=== PATIENT | male | born 1990 | race Caucasian/White ===

== ENCOUNTER 2023-03-01 04:26 | Emergency (ER) | payer BC, SELFPAY ==
[2023-03-01 04:31] VITALS: BP 127/87; PULSE 67; RESP 16; TEMP 37.1; O2SAT 99; BMI 26.6
--- NOTE | 2023-03-01 04:38 | PC.NURSE ---
Pt presents to ER for left ear infection Pt states It is not really that painful, but I know I have an ear infection Pt states he has a history of ear infections and just knows thats what it is Pt has a cotton ball in the ear at this time No fevers
--- NOTE | 2023-03-01 04:42 | ED.EAR1 ---
HPI - Ear Problem General Chief complaint: Ear Stated complaint: LEFT EAR PAIN Time Seen by Provider: 03/01/23 04:39 Source: patient Mode of arrival: walk-in Limitations: no limitations History of Present Illness HPI Narrative: patient states he has a hole left ear drum. States left ear has been draining and plugged. No dizziness or headache. no fever MD Complaint: Reports ear pain Location: left ear Related Data Home Medications Medication Instructions Recorded Confirmed No Known Home Medications 03/01/23 03/01/23 Allergies Allergy/AdvReac Type Severity Reaction Status Date / Time No Known Drug Allergies Allergy Verified 03/01/23 04:35 Review of Systems ROS Status of ROS 10 or more systems reviewed and unremarkable except as noted in history and below Exam Constitutional Vital Signs - 24 hr 03/01/23 04:31 Temperature 98.7 F Pulse Rate [Monitor] 67 Respiratory Rate 16 Blood Pressure [Right Arm] 127/87 H Pulse Oximetry 99 Oxygen Delivery Method Room Air Common normals: no apparent distress, average body habitus and oriented x3 HENMT Common normals: normocephalic and head/scalp atraumatic Other: left ear canal impacted with wax. no obvious drainage and ear canal is not narrowed Eye Common normals: PERRL, EOMs intact bilaterally and conjunctivae normal Respiratory Common normals: normal respiratory effort Cardio Common normals: regular rhythm, S1 normal heart sound and S2 normal heart sound Extremity Common normals: normal to inspection and full ROM Neuro Common normals: oriented x3, CN's II-XII intact bilaterally, moves all extremities and no focal motor deficits Course Vital Signs Vital signs: Vital Signs Temperature 98.7 F 03/01/23 04:31 Pulse Rate 67 03/01/23 04:31 Respiratory Rate 16 03/01/23 04:31 Blood Pressure 127/87 H 03/01/23 04:31 Pulse Oximetry 99 03/01/23 04:31 Oxygen Delivery Method Room Air 03/01/23 04:31 Temperature 98.7 F 03/01/23 04:31 Pulse Rate 67 03/01/23 04:31 Respiratory Rate 16 03/01/23 04:31 Blood Pressure 127/87 H 03/01/23 04:31 Pulse Oximetry 99 03/01/23 04:31 Oxygen Delivery Method Room Air 03/01/23 04:31 Medical Decision Making [facility] Narrative Medical decision making narrative: patient presents with left ear pain. 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 does have impacted wax which severely limits inspection of the ear. Refrained from having nursing irrigate his ear given his history of ear perforation. Will treat with course of antibiotics and have him follow up with his family doctor for recheck Discharge Plan Discharge Chief Complaint: Ear Clinical Impression: Pain in left ear Patient Disposition: Home, Self-Care Prescriptions / Home Meds: No Action No Known Home Medications Instructions: Earache (ED) Additional Instructions: follow up with your doctor early next week for recheck of your ear Stand Alone Forms: Portal Instructions Discharge Date/Time: 03/01/23 05:39
== END 2023-03-01 05:39 | disposition home or self-care (01) ==
PROVIDERS: Emergency Provider Internal Medicine; Family Provider Family Medicine
DX: H92.02 Otalgia, left ear (principal)
CPT/HCPCS: 99283

== ENCOUNTER 2024-01-22 10:48 | Emergency (ER) | payer BC, SELFPAY ==
[2024-01-22] VITALS (20 sets, daily range): BP systolic 113–133; BP diastolic 64–81; PULSE 86–97; TEMP 36.9–37.6; O2SAT 96–99; BMI 28.2
--- NOTE | 2024-01-22 10:59 | XR_ITS ---
The [address] [address] Patient Name: ATUL RUST MRN: [id number] date: 1990 Sex: M Assigned Patient Location: ER Current Patient Location: ER Accession/Order Number: [id number] Exam Date: 01/22/2024 11:34 Report Date: 01/22/2024 11:56 At the request of: EVI VÁZQUEZ Procedure: XR chest 1V EXAM: Chest x-ray HISTORY: . cough . COMPARISON: None. TECHNIQUE: Single view of the chest FINDINGS: Heart and vascularity are unremarkable. Lungs are free of focal infiltrates. Grossly no acute bony abnormality is appreciated. EKG leads overlie the chest. XR/XR chest 1V IMPRESSION: No acute heart or lung disease identified. Electronically authenticated by: NORMA LIVINGSTON Date: 01/22/2024 11:56
--- NOTE | 2024-01-22 10:59 | ECG_ITS ---
The [facility] Test Date: 2024-01-22 Pat Name: ATUL RUST Department: Room: - Gender: Male Scheduler Maintenance: : 1990 Requested By: Order Number: [id number] Reading MD: MICHAEL BURRIS Measurements Intervals [place] Rate: 96 P: 53 MO: 136 QRS: 73 QRSD: 100 T: 46 QT: 334 QTc: 388 Interpretive Statements 1100 Sinus rhythm 2420 RSR (QR) in lead V1/V2, consistent with right ventricular conduction delay 9130 borderline ECG No previous ECG available for comparison Electronically Signed On 01-22-2024 23:06:02 EDT by MICHAEL BURRIS
--- NOTE | 2024-01-22 11:01 | ED_ITS ---
HPI HPI - General Adult General Chief complaint: Shortness of Breath/Dyspnea Stated complaint: CHEST PAIN, SOB, NAUSEA Time Seen by Provider: 01/22/24 10:49 Source: patient Mode of arrival: walk-in Limitations: no limitations History of Present Illness HPI narrative: Patient presents ED complaining of shortness of breath and not feeling well. He said he started feeling short of breath last night around 8 PM at work. 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 He just felt winded and like he could not catch his breath or like he could not get a deep breath. He has no history of lung problems no asthma no COPD. He does not smoke. He did recently travel to [place] and just got back 2 days ago. They did fly on an airplane. He said his ear was bothering him after the airplane but he thought it was just due to pressure and it has now normalized. He does have some tachycardia here and low-grade fever. He is upset and anxious here in ED and says he is never felt this sick before. He does question if this could be food poisoning because he did not wash his hands after handling meat Recently. He did have a little bit of vomiting once but otherwise no other vomiting or diarrhea.He reports that it feels hard to get a deep breath and when he breathes deeply he seems to have centrally located chest pain. No back pain no abdominal pain. Related Data Home Medications ?Medication ?Instructions ?Recorded ?Confirmed No Known Home Medications 03/01/23 03/01/23 Allergies Allergy/AdvReac Type Severity Reaction Status Date / Time No Known Drug Allergies Allergy Verified 03/01/23 04:35 Opioid HPI Opioid Management Most Recent Opioid Data: Last ED Pain Assessment 01/22/24 12:12 Review of Systems ROS Status of ROS 10 or more systems reviewed and unremark able except as noted in history and below Exam Narrative Exam Narrative: Time Seen: [] Vital Signs: [Per nurse's notes.] General: [Alert]Anxious, tearful Skin: [Warm, dry, no rash.] Head: [Normocephalic, atraumatic.] Neck: [Supple, trachea midline.] Eye: [Pupils are equal, round and reactive to light, extraocular movements are intact, normal conjunctiva.] Ears, nose, mouth and throat: oral mucosa moist. Cardiovascular: [Tachycardia, no murmur.] Respiratory: [Lungs are clear to auscultation, respirations are non-labored, breath sounds are equal.Patient is taking shallow breaths Chest wall: [No tenderness, no deformity.] Gastrointestinal: [Soft, nontender, non distended, normal bowel sounds.] MSK: 5 out of 5 muscle strength x 4 extremities no calf pain or edema Lymphatics: [No lymphadenopathy.] Psychiatric: [Cooperative, appropriate mood & affect.] Neurological: [Alert and oriented to person, place, time, and situation, no focal neurological deficit observed.] Constitutional Vital Signs, click to edit/add: Last Vital Signs Temp 99.6 F 01/22/24 10:53 Pulse 86 01/22/24 12:10 Resp 18 01/22/24 12:10 BP 113/71 01/22/24 12:01 Pulse Ox 98 01/22/24 12:12 O2 Del Method Room Air 01/22/24 12:12 Course Vital Signs Vital signs: Vital Signs Temperature 99.6 F 01/22/24 10:53 Pulse Rate 96 H 01/22/24 10:53 Respiratory Rate 18 01/22/24 10:53 Blood Pressure 133/80 01/22/24 10:53 Pulse Oximetry 97 01/22/24 10:53 Oxygen Delivery Method Room Air 01/22/24 10:53 Temperature 99.6 F 01/22/24 10:53 Pulse Rate 86 01/22/24 12:10 Respiratory Rate 18 01/22/24 12:10 Blood Pressure 113/71 01/22/24 12:01 Pulse Oximetry 98 01/22/24 12:12 Oxygen Delivery Method Room Air 01/22/24 12:12 Medical Decision Making [facility] Narrative Medical decision making narrative: Patient's chest x-ray is clear. His liver function tests are mildly elevated therefore I added on a monotest. Monotest is negative. The rest of his labs are nonacute. Patient and family were concerned because he did just spend time in [place] they wanted him ruled out for valley fever. I sent lab's for Coccidiomycosis Which will not be back for a few days. Patient is to return to the ER if worsening cough shortness of breath fevers abdominal pain or any other concerning symptoms. D-dimer was negative, PE ruled out. Please follow-up with family doctor to have the liver function rechecked. Take Tylenol and Motrin for pain or fever and stay well-hydrated with fluids. Patient's vitals are stable he and family are comfortable care plan for home Differential Diagnosis Differential Diagnosis: Viral syndrome, valley fever, pneumonia, pulmonary embolus Lab Data Labs: Lab Results 01/22/24 01/22/24 Range/Units 10:54 11:05 WBC 9.0 (4.0-11.0) 10^3/uL RBC 4.86 (4.70-6.10) 10^6/uL Hgb 14.4 (14.0-18.0) g/dL Hct 44.2 (42.0-54.0) % MCV 90.9 (80.0-94.0) fL MCH 29.6 (25.9-34.0) pg MCHC 32.6 (29.9-35.2) g/dL RDW 12.8 (11.0-15.0) % Plt Count 200 (150-450) 10^3/uL MPV 8.7 L (9.5-13.5) fL Neut % (Auto) 81.4 H (43.0-75.0) % Lymph % (Auto) 10.7 L (20.5-60.0) % [place] % (Auto) 6.8 (1.7-12.0) % Eos % (Auto) 0.6 L (0.9-7.0) % Baso % (Auto) 0.3 (0.2-2.0) % Neut # (Auto) 7.4 H (1.4-6.5) 10^3/uL Lymph # (Auto) 1.0 L (1.2-3.8) 10^3/uL [place] # (Auto) 0.6 (0.3-0.8) 10^3/uL Eos # (Auto) 0.1 (0.0-0.7) 10^3/uL Baso # (Auto) 0.0 (0.0-0.1) 10^3/uL Abs Immat Gran (auto) 0.02 (0.00-0.03) 10^3/uL Imm/Tot Granulo (auto) 0.2 (0.0-0.5) % D-Dimer 0.20 (<=0.59) mg/L FEU Sodium 138 (136-145) mmol/L Potassium 4.2 (3.5-5.1) mmol/L Chloride 103 (98-107) mmol/L Carbon Dioxide 26.8 (21.0-32.0) mmol/L Anion Gap 12.4 BUN 14.0 (7.0-18.0) mg/dL Creatinine 0.95 (0.70-1.30) mg/dL Est GFR ( Amer) >60 (>=60) Est GFR (Non-Af Amer) >60 (>=60) BUN/Creatinine Ratio 14.7 Glucose 107 H (74-106) mg/dL Calcium 8.8 (8.5-10.1) mg/dL Total Bilirubin 1.1 H (0.2-1.0) mg/dL AST 31 (15-37) U/L ALT 79 H (16-63) U/L Alkaline Phosphatase 124 H (46-116) U/L Troponin I High Sens <4.0 L (4.0-76.1) pg/mL Total Protein 7.5 (6.4-8.2) g/dL Albumin 4.1 (3.4-5.0) g/dL Globulin 3.4 g/dL Albumin/Globulin Ratio 1.2 Monoscreen Negative (NEGATIVE) Influenza Type A Ag Negative Influenza Type B Ag Negative SARS-CoV-2 Ag (CV2AG) Negative (NEGATIVE) Imaging Data Chest x-ray: Radiologist's impression: ITS Impressions Chest X-Ray 01/22/24 10:59 IMPRESSION: No acute heart or lung disease identified. Electronically authenticated by: NORMA LIVINGSTON Date: 01/22/2024 11:56 ECG Data Attestation: I personally reviewed and interpreted this ECG as follows: Interpretation: EKG INTERPRETATION Time: []1059 Rate: []96 Rhythm: _ []Normal sinus rhythm ST segments: _ [] T waves: _ [] Ectopy: _ [] P wave/CO interval: _ [] QRS interval: _ [] QT interval: _ [] Comparison: _ [] Comparison EKG date: [] Performed by: [self]No acute ST elevation or depression Discharge Plan Discharge Stand Alone Forms: Portal Instructions Chief Complaint: Shortness of Breath/Dyspnea Clinical Impression: Acute viral syndrome Patient Disposition: Home, Self-Care Time of Disposition Decision: 12:24 Mode of Transportation: Private Vehicle Prescriptions / Home Meds: No Action No Known Home Medications Print Language: Italian Instructions: Viral Syndrome (ED) Referrals: Physician,Non-Staff, MD [Primary Care Provider] - 1 week
[2024-01-22 11:13] LABS: Basophils Percent Auto 0.3 % (0.2-2.0); Eosinophils Absolute Auto 0.1 10^3/uL (0.0-0.7); Eosinophils Percent Auto 0.6 % (0.9-7.0); Hematocrit 44.2 % (42.0-54.0); Hemoglobin 14.4 g/dL (14.0-18.0); Immature Granulocytes Abs Auto 0.02 10^3/uL (0.00-0.03); Immature Granulocytes Pct Auto 0.2 % (0.0-0.5); Lymphocytes Percent Auto 10.7 % (20.5-60.0); Mean Corpuscular HGB Conc 32.6 g/dL (29.9-35.2); Mean Corpuscular Hemoglobin 29.6 pg (25.9-34.0); Mean Corpuscular Volume 90.9 fL (80.0-94.0); Mean Platelet Volume 8.7 fL (9.5-13.5); Monocytes Absolute Auto 0.6 10^3/uL (0.3-0.8); Monocytes Percent Auto 6.8 % (1.7-12.0); Neutrophils Absolute Auto 7.4 10^3/uL (1.4-6.5); Neutrophils Percent Auto 81.4 % (43.0-75.0); Platelet Count 200 10^3/uL (150-450); Red Blood Count 4.86 10^6/uL (4.70-6.10); Red Cell Distribution Width 12.8 % (11.0-15.0)
[2024-01-22] MEDS: 0.9 % SODIUM CHLORIDE 1,000 ML 1000 ML IV (11:15)
[2024-01-22] MEDS: KETOROLAC TROMETHAMINE 30 MG/ML VIAL 15 MG IVP (11:15)
[2024-01-22 11:38] LABS: Influenza Virus A Antigen Negative; Influenza Virus B Antigen Negative; Internal Control Within Normal Limits; SARS-CoV-2 Ag NEGATIVE (NEGATIVE)
[2024-01-22 11:41] LABS: Alanine Aminotransferase 79 U/L (16-63); Albumin Globulin Ratio 1.2; Albumin Level 4.1 g/dL (3.4-5.0); Alkaline Phosphatase 124 U/L (46-116); Anion Gap 12.4; Aspartate Amino Transferase 31 U/L (15-37); BUN Creatinine Ratio 14.7; Bilirubin Total 1.1 mg/dL (0.2-1.0); Calcium 8.8 mg/dL (8.5-10.1); Carbon Dioxide 26.8 mmol/L (21.0-32.0); Chloride 103 mmol/L (98-107); Estimated GFR (African America >60 (>=60); Estimated GFR (Non-African Ame >60 (>=60); Globulin 3.4 g/dL; Glucose 107 mg/dL (74-106); Potassium 4.2 mmol/L (3.5-5.1); Sodium 138 mmol/L (136-145); Total Protein 7.5 g/dL (6.4-8.2); Troponin I High Sensitivity <4.0 pg/mL (4.0-76.1)
[2024-01-22 12:09] LABS: Internal Control Within Normal Limits; Mono Screen NEGATIVE (NEGATIVE)
== END 2024-01-22 12:40 | disposition home or self-care (01) ==
PROVIDERS: Emergency Provider Emergency Medicine; Family Provider Family Medicine
DX: B34.9 Viral infection, unspecified (principal); Z20.822 Contact with and (suspected) exposure to COVID-19
CPT/HCPCS: 36415; 71045; 80053; 84484; 85025; 85378; 86308; 86635; 87804; 87811; 93005; 99285

== ENCOUNTER 2024-04-04 05:27 | Emergency (ER) | payer BC, SELFPAY ==
--- OUTSIDE RECORDS SUMMARY | 2024-04-04 05:35 | XMS_ITS | CCD ---
Author Organization [facility] Care Team Providers Care Agricultural Extension Educator Name Role Phone Bailey LIU Primary Care Physician MATEO ELAINE Attending Unavailable MATEO ELAINE Consulting Unavailable MATEO ELAINE Admitting Unavailable DR BAILEY LIU Consulting Unavailable Bailey LIU Attending Unavailable Bailey LIU Attending Unavailable Bailey LIU Admitting Unavailable Chet Corrales Attending Unavailable Bailey LIU Attending Unavailable Rikki Mccormick Attending Unavailable Bailey LIU Referring Unavailable Bailey LIU Attending Unavailable Bailey LIU Admitting Unavailable Allergies Allergy Classification Reported Allergen(s) Allergy Type Date of Onset Reaction(s) Facility (2 sources) No Known Medication Allergies; Translations: [No Known Medication Allergies] Propensity to adverse reactions (disorder) [facility] Repository Medications Current Medications Medication Drug Class(es) Dates Sig (Normalized) Sig (Original) famotidine 40 mg oral tablet (3 sources) Histamine-2 Receptor Antagonist Start: 01-28-2024 take 1 tablet by mouth once daily at bedtime Pepcid 40 mg Tab 40 mg = 1 tab(s), Oral, Once a day (at bedtime), # 90 tab(s), Refills(s) 3, Pharmacy: [facility]/pharmacy #[id number], 170.2, cm, 01/28/24 10:27:00 EDT, Height/Length Dosing, 85.7, kg, 01/28/24 10:27:00 EDT, Weight Dosing Start Date: 01/28/24 Status: Ordered Garamycin 0.3% Soln-Opth (1 source) Start: 10-30-2023 End: 11-06-2023 Garamycin 0.3% Soln-Opth 2 drop(s), OPTH, QID for 7 day(s), 5 mL, Refill(s) 0, [facility], 170.2, cm, 10/30/23 9:25:00 EST, Height/Length Dosing, 87, kg, 10/30/23 9:25:00 EST, Weight Dosing Start Date: 10/30/23 Stop Date: 11/06/23 Status: Ordered 12 hr loratadine 5 mg / pseudoephedrine sulfate 120 mg extended release oral tablet (1 source) alpha-Adrenergic Agonist Start: 11-14-2021 End: 11-21-2021 take 1 tablet by mouth every twelve hours loratadine-pseud oephedrine 5 mg-120 mg ER Tab 1 tab(s), Oral, q12hr for 7 day(s), 14 tab(s), [facility](s) [facility], [facility], cm, 08/25/20 9:15:00 EST, Height/Length Dosing, 68.5, kg, 08/25/20 9:15:00 EST, Weight Dosing Start Date: 11/14/21 Stop Date: 11/21/21 Status: Ordered Problems Problem Classification Problem Date Documented Da te Episodic/Chronic Abdominal pain (2 sources) Generalized abdominal pain 08-25-2020 Episodic Esophageal disorders (4 sources) Gastro-esophageal reflux disease with esophagitis; Translations: [Gastro-esophageal reflux disease with esophagitis, without bleeding] Onset: 01-28-2024 Chronic Nonspecific chest pain (5 sources) Chest pain; Translations: [Other chest pain] Onset: 01-28-2024 Episodic Other ear and sense organ disorders (1 source) Otalgia; Translations: [Otalgia, unspecified ear] Onset: 11-14-2021 Episodic Other ear and sense organ disorders (4 sources) Otalgia, left ear; Translations: [Otalgia of left ear] Onset: 06-26-2022 Episodic Other eye disorders (1 source) Disorder of eye region; Translations: [Other specified disorders of eye and adnexa] Onset: 10-30-2023 Episodic Other injuries and conditions due to external causes (5 sources) Injury of groin 08-25-2020 Episodic Other injuries and conditions due to external causes (2 sources) Strain of muscle of trunk 08-25-2020 Episodic Other liver diseases (1 source) Increased aspartate transaminase level; Translations: [Elevation of levels of liver transaminase levels] Onset: 01-28-2024 Episodic Other liver diseases (1 source) Jaundice; Translations: [Unspecified jaundice] Onset: 01-28-2024 Episodic Other liver diseases (3 sources) ALT (SGPT) level raised 01-28-2024 Episodic Other nutritional; endocrine; and metabolic disorders (4 sources) Overweight in adulthood with body mass index of 25 or more but less than 30; Translations: [Body mass index (BMI) 29.0-29.9, adult] Onset: 01-28-2024 Episodic Other nutritional; endocrine; and metabolic disorders (4 sources) Overweight; Translations: [Overweight] Onset: 01-28-2024 Episodic Other screening for suspected conditions (not mental disorders or infectious disease) (3 sources) Increased bilirubin level 01-28-2024 Episodic Other upper respiratory disease (2 sources) Nasal congestion; Translations: [Nasal congestion] Onset: 11-14-2021 Episodic Otitis media and related conditions (1 source) Otitis media, unspecified, left ear; Translations: [OTITIS MEDIA UNSPECIFIED LEFT EAR] Onset: 06-27-2022 Episodic Unclassified (5 sources) Patient encounter status 08-25-2020 Results Test Name Value Interpretation Reference Range Facility Heart and Vascular Office/Cl inic Noteon 02-20-2024 Heart and Vascular Office/Clinic Note Heart and Vascular Office/Clinic Note Chief Complaint New patient- Chest Pain History of Present Illness The patient is a 33-year-old male with past medical history of GERD, who was referred due to chest discomfort. In the end of December, he presented to [facility] ER with complaints of chest pain. It was associated with nausea. He describes the pain as feelings of needle poking sensations in his right abdominal area, lasting for hours, exacerbating by taking a deep breath. His cardiac workup was quite unremarkable. He states that they came from vacation from [place], and his relatives had similar symptoms. He reports no exertional chest pain or tightness, dizziness or lightheadedness, palpitations, syncope or presyncope. The patient is a lifetime non-smoker. He admits to significant precocious history of CAD in his family, with his mother having a myocardial infarction in her 40s. Review of Systems PHQ Score Initial Depression Screen Score: 0 SCORE ROS - Provider Constitutional: no fever, no chills, no fatigue Skin:no rash, no lesions ENMT: no ear pain, no sore throat, no congestion. Respiratory: no shortness of breath, no cough, no wheezing. Cardiovascular: no chest pain, no palpitations, no edema. Gastrointestinal: no nausea, no vomiting, no diarrhea, no GI bleeding. Genitourinary: no dysuria, no frequencyno hematuria Musculoskeletal: no back pain, no trauma. Neurologic: no headache, no dizziness, no numbness, no weakness. Psychiatric: no sleeping problems, no irritability, no mood swings/depression. Heme/Lymph: no bleeding tendency, no bruising tendency, no petechiae, Allergy/Immuno logic: no seasonal allergies, no food allergies, no recurrent infections Physical Exam Vitals & Measurements HR: 64(Peripheral) RR: 16 BP: 122/72 SpO2: 98% HT: 67 in HT: 170.2 cm WT: 86.2 kg WT: 189.64 lb BMI: 29.76 General: alert, no acute distress Neck: Supple, noJVD nocarotid bruit Cardiovascular: regular rate and rhythm, no murmur normal peripheral perfusion Respiratory: Lungs CTAB, respirations non labored Extremities: no edema left lower extremity. no edema right lower extremity Neurological: oriented x 4, LOC appropriate for age, speech normal Skin: Warm, dry, intact- no rash or concerning lesions Procedure ECG today demonstrates sinus rhythm at 63 bpm, no ST or T wave deviations, consistent with ischemia. Assessment/Plan 1. Precordial pain (R07.2: Precordial pain) Clearly noncardiac. I do not think any additional cardiac workup is necessary, at least at this point in time. Aggressive risk factor modification is recommended, given presence of precocious CAD in the family. Orders: ECG 12 Lead Adult Follow-up No qualifying data available As needed Problem List/Past Medical History Ongoing Atypical chest pain BMI 29.0-29.9,adult Elevated ALT measurement Elevated bilirubin GERD with esophagitis Over weight Well adult exam Historical Groin strain Medications Pepcid 40 mg Tab, 40 mg= 1 tab(s), Oral, Once a day (at bedtime), 3 refills Allergies No Known Medication Allergies Social History Alcohol - Denies Alcohol Use, 11/14/2021 Substance Abuse - Denies Substance Abuse, 11/14/2021 Tobacco - Denies Tobacco Use, 11/14/2021 Never (less than 100 in lifetime) Tobacco Use:. Never Smokeless Tobacco Use:., 02/20/2024 Family History Family history is negative Immunizations Vaccine Date Status Comments SARS-CoV-2 (COVID-19) Ad26 vaccine - Not Given Postpone due to refusal influenza virus vaccine, inactivated - Not Given Patient Refuses Normal [facility] Comment on above: Result Comment: Elec tronically Signed By: Jace BURRIS, Rikki Lomeli\.br\Date and Time Signed: 02/20/24 09:16 EDT Insurance Correspondenceon 0 02-03-2024 Insurance Correspondence [id number] Normal [facility] CHEMISTRYOrdered By: SYSTEM SYSTEM on 01-29-2024 Albumin [Mass/Vol] 4.6 g/dL Normal 3.3 - 5.0 gm/dL Remisol Chem Albumin/Globulin [Mass ratio] 1.7 {ratio} Normal 1.1 - 2.2 Remisol Chem ALP [Catalytic activity/Vol] 80 [iU]/d Normal 21 - 98 Int._Unit/L Remisol Chem ALT No additional P-5'-P [Catalytic activity/Vol] 26 [iU]/d Normal 6 - 46 Int._Unit/L Remisol Chem AST [Catalytic activity/Vol] 18 [iU]/d Normal 5 - 43 Int._Unit/L Remisol Chem Bilirubin [Mass/Vol] 0.7 mg/dL Normal 0.0 - 1.1 mg/dL Remisol Chem Bilirubin.direct [Mass/Vol] 0.1 mg/dL Normal 0.0 - 0.4 mg/dL Remisol Chem Bilirubin.indirect [Mass or moles/Vol] 0.6 mg/dL Normal 0.1 - 0.9 mg/dL Remisol Chem Cholesterol [Mass/Vol] 200 mg/dL Normal 120 - 200 mg/dL Remisol Chem Cholesterol in HDL [Mass/Vol] 36 mg/dL Invalid Interpretation Code Remisol Chem Comment on above: Result Comment: '>= 60 LOW RISK' '<= 40 HIGH RISK' Cholesterol in LDL [Mass/Vol] 148 mg/dL High <=129mg/dL Remisol Chem Cholesterol in VLDL [Mass/Vol] 25 mg/dL Normal 7 - 40 mg/dL Remisol Chem Ferritin [Mass/Vol] 119 ng/mL Normal 24 - 336 ng/mL Remisol Chem Globulin (S) [Mass/Vol] 2.7 g/dL Normal 1.4 - 4.0 gm/dL Remisol Chem Protein [Mass/Vol] 7.3 g/dL Normal 6.0 - 7.8 gm/dL Remisol Chem Triglyceride [Mass/Vol] 127 mg/dL Normal <=149mg/dL Remisol Chem Consent for Treatmenton Consent for Treatment [id number] Normal [facility] Ferritinon 01-29-2024 Ferritin [Mass/Vol] 119 ng/mL Normal 24-336 [facility] Comment on above: Performed By: #### 2 [id number] #### [facility] [address] [place] [address] Hep Func Panelon 01-29-2024 Albumin [Mass/Vol] 4.6 g/dL Normal 3.3-5.0 [facility] Comment on above: Performed By: #### 2 [id number] #### [facility] [address] [place] [address] Albumin/Globulin (S) [Mass conc ratio] 1.7 Normal 1.1-2.2 [facility] Comment on above: Performed By: #### 2 [id number] #### [facility] [address] [place] [address] ALP [Catalytic activity/Vol] 80 Int._Unit/L Normal 21-98 [facility] Comment on above: Performed By: #### 2 [id number] #### [facility] [address] [place] [address] ALT No additional P-5'-P [Catalytic activity/Vol] 26 Int._Unit/L Normal 6-46 [facility] Comment on above: Performed By: #### 2 [id number] #### [facility] [address] [place] [address] AST [Catalytic activity/Vol] 18 Int._Unit/L Normal 5-43 [facility] Comment on above: Performed By: #### 2 [id number] #### [facility] [address] [place] [address] Bilirubin [Mass/Vol] 0.7 mg/dL Normal 0.0-1.1 [facility] Comment on above: Performed By: #### 2 [id number] #### [facility] [address] [place] [address] Bilirubin.direct [Mass/Vol] 0.1 mg/dL Normal 0.0-0.4 [facility] Comment on above: Performed By: #### 2 [id number] #### [facility] [address] [place] [address] Bilirubin.indirect [Mass or moles/Vol] 0.6 mg/dL Normal 0.1-0.9 [facility] Comment on above: Performed By: #### 2 [id number] #### [facility] [address] [place] [address] Globulin (S) [Mass/Vol] 2.7 g/dL Normal 1.4-4.0 [facility] Comment on above: Performed By: #### 2 [id number] #### [facility] [address] [place] [address] Protein [Mass/Vol] 7.3 g/dL Normal 6.0-7.8 [facility] Comment on above: Performed By: #### 2 [id number] #### [facility] [address] [place] [address] Lipid Panelon 01-29-2024 Cholesterol [Mass/Vol] 200 mg/dL Normal 120-200 [facility] Comment on above: Performed By: #### 2 [id number] #### [facility] [address] [place] [address] Cholesterol in HDL [Mass/Vol] 36 mg/dL Invalid Interpretation Code [facility] Comment on above: Result Comment: '>= 60 LOW RISK' '<= 40 HIGH RISK' Performed By: #### 2 [id number] #### [facility] [address] [place] [address] Cholesterol in LDL [Mass/Vol] 148 mg/dL High <=129 [facility] Comment on above: Performed By: #### 2 [id number] #### [facility] [address] [place] [address] Cholesterol in VLDL [Mass/Vol] 25 mg/dL Normal 7-40 [facility] Comment on above: Performed By: #### 2 [id number] #### [facility] [address] [place] [address] Triglyceride [Mass/Vol] 127 mg/dL Normal <=149 [facility] Comment on above: Performed By: #### 2 [id number] #### [facility] [address] [place] [address] Physician Referralon 024 Physician Referral [id number] Normal [facility] Ambulatory Visit Summaryon 0 01-28-2024 Ambulatory Visit Summary ATUL RUST :1990 Visit Date:01/28/2024 Ambulatory Visit Instructions Your Diagnosis Atypical chest pain Well adult exam Elevated ALT measurement Elevated bilirubin GERD with esophagitis BMI 29.0-29.9,adult Over weight Your Care Team Attending Physician - Bailey LIU DO, FAAFP Primary Care Physician - Bailey LIU DO, FAAFP This Is Your Medications List famotidine (Pepcid 40 mg Tab) Discharge Vitals Temperature (Oral) 36.4 ?C Heart Rate (Peripheral) 77 Blood Pressure 138/72 Height 170.2 cm Height 67 in Weight 85.7 kg Weight 188.54 lb BMI 29.58 What to do next You Need to Schedule the Following Appointments Follow Up with Bailey LIU DO, FAAFP, JOANA, PED When: In 3 months Where: [address], [facility] [place] [address]- You Need to Complete the Following Echo Transthoracic Complete, 01/28/24, Routine, Order for future visit, Transport Mode: Ambulatory, Reason: Chest pain, Atypical chest pain, pp_set_radiology_subspecia lty, [facility] Medications What How Much When Why Instructions New famotidine (Pepcid 40 mg Tab) 1 Tablets By Mouth Once a day (at bedtime) GERD with esophagitis Refills: 3 Pickup at [facility]/pharmacy #[id number] Pharmacy Information [facility]/pharmacy #[id number]: [address] [place], [place] [id number] [phone] Allergies No Known Medication Allergies Problems Ongoing - Any problem that you are currently receiving treatment for. Atypical chest pain BMI 29.0-29.9,adult Elevated ALT measurement Elevated bilirubin Functional abdominal pain syndrome GERD with esophagitis Injury of groin Over weight Strain of muscle of right groin region Strain of muscle of trunk Well adult exam Historical - Any problem that you are no longer receiving treatment for. Groin strain Patient Survey You may receive a survey via text or e-mail asking about your office visit. Please share your experience with us by completing your survey. We appreciate your feedback and thank you for choosing us for your care. Education Materials Nonspecific Chest Pain, Adult Chest pain is an uncomfortable, tight, or painful feeling in the chest. The pain can feel like a crushing, aching, or squeezing pressure. A person can feel a burning or tingling sensation. Chest pain can also be felt in your back, neck, jaw, shoulder, or arm. This pain can be worse when you move, sneeze, or take a deep breath. Chest pain can be caused by a condition that is life-threatening. This must be treated right away. It can also be caused by something that is not life-threatening. If you have chest pain, it can be hard to know the difference, so it is important to get help right away to make sure that you do not have a serious condition. Some life-threatening causes of chest pain include: ? Heart attack. ? A tear in the body's main blood vessel (aortic dissection). ? Inflammation around your heart (pericarditis). ? A problem in the lungs, such as a blood clot (pulmonary embolism) or a collapsed lung (pneumothorax). Some non life-threatening causes of chest pain include: ? Heartburn. ? Anxiety or stress. ? Damage to the bones, muscles, and cartilage that make up your chest wall. ? Pneumonia or bronchitis. ? Shingles infection (varicella-zoster virus). Your chest pain may come and go. It may also be constant. Your health care provider will do tests and other studies to find the cause of your pain. Treatment will depend on the cause of your chest pain. Follow these instructions at home: Medicines ? Take ofbu-aao-wbhhvqm and prescription medicines only as told by your health care provider. ? If you were prescribed an antibiotic medicine, take it as told by your health care provider. Do not stop taking the antibiotic even if you start to feel better. Activity ? Avoid any activities that cause chest pain. ? Do not lift anything that is heavier than 10 lb (4.5 kg), or the limit that you are told, until your health care provider says that it is safe. ? Rest as directed by your health care provider. ? Return to your normal activities only as told by your health care provider. Ask your health care provider what activities are safe for you. Lifestyle ? Do not use any products that contain nicotine or tobacco, such as cigarettes, e-cigarettes, and chewing tobacco. If you need help quitting, ask your health care provider. ? Do not drink alcohol. ? Make healthy lifestyle changes as recommended. These may include: ? Getting regular exercise. Ask your health care provider to suggest some exercises that are safe for you. ? Eating a heart-healthy diet. This includes plenty of fresh fruits and vegetables, whole grains, low-fat (lean) protein, and low-fat dairy products. A dietitian can help you find healthy eating options. ? Maintai (more content not included)... Normal [facility] Family Medicine Office/Clini c Noteon 01-28-2024 Family Medicine Office/Clinic Note Chief Complaint pt here for ER f/u chest pains. was seen at [facility] doing good. wants f/u blood work. History of Present Illness Here for follow up Have you had any ER visits or any hospitalizations since last visit? yes WBC's were elevated and liver enzymes were elevated. I am fine now. I walk carrying groceries and lifting 50lbs 8 hrs per day w/o difficulty since ED visit. Monitor okay in ED and no associated rapid nor fast heart rate. Are you compliant with your medications and no difficulty affording your medications? yes Do you have side effects from the medication? no Are you compliant with your diet? yes Do you exercise? 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 Chest pain? no Palpitations? no G[place]LEGO/SOB? no Orthopnea? no PND? no Edema? no Have you had any recent cardiopulmonary testing? no Covid and resp panel neg. [place] and influenza neg. I took 2 Ibuuprofen day before this happened. Day of ED visit I woke up and could not breath, took me to ED, never blue. It felt like I was suffocating, lasted 1/12 day. No syncope nor near syncope. Ate sphagetti day before. D-Dimer normal, < 0.59 I was a litttle nauseous 3 kids at home and none ill. I carry, bag and load groceries 8 hrs per day 3 days per week at no preceeding illiness 1 mo prior to episode. 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 Patient believes that it most likely could be heartburn possibly related to spaghetti Review of Systems PHQ Score Initial Depression Screen Score: 0 SCORE ROS - Provider Constitutional: no fever, no chills, no sweats, no weakness. Skin: no Jaundice, no rash, no lesions, no petechiae. ENMT: no ear pain, no sore throat, no congestion, no hoarseness. Respiratory: no shortness of breath, no cough, no orthopnea, no wheezing. Cardiovascular: no chest pain, no palpitations, no edema. Gastrointestinal: no nausea, no vomiting, no diarrhea, no GI bleeding.no constipationnoheartburn Genitourinary: no dysuria, no hematuria, no discharge, no pain.nofreq/urgency Musculoskeletal: no back pain, no trauma.nojoint pain Neurologic: no headache, no dizziness, no numbness, no weakness. Psychiatric: no sleeping problems, no irritability, no mood swings/depression. Heme/Lymph: no bleeding tendency, no bruising tendency, no petechiae, no swollen lymph nodes no Allergy/Imunology no seasonal allergies, no food allergies, no recurrent infections, no impaired immunity. Additional ROS info: Except as noted in the above Review of Systems and in the History of Present Illness all other systems have been reviewed and are negative or noncontributory. Physical Exam Vitals & Measurements T: 36.4 ?C(Oral) HR: 77(Peripheral) BP: 138/72 SpO2: 96% HT: 67 in HT: 170.2 cm WT: 85.7 kg WT: 188.54 lb BMI: 29.58 General: Well developed, well nourished, in no acute distress Mouth: Mucous membranes moist. Normal oropharynx, and posterior pharynx without lesions or exudates. Tongue normal Neck: Neck supple. No masses or palpable cervical nodes. Trachea midline. Thyroid without nodules, masses, tenderness, or enlargement Lungs: Normal respiratory effort and clear to auscultation Cardio: Regular rate and rhythm, normal S1 and S2, no murmur, no rub Abdomen: Soft, non-distended, non-tender. no G/R/S/Masses Musculoskeletal: No deformity or scoliosis noted. Normal range of motion. Joints normal. No erythema, edema, effusion, or ecchymosis Extremity: No clubbing, cyanosis, edema, or deformity, with normal ROM in both upper and lower bilateral extremities Neurologic: Grossly normal Skin: No rashes, ulcerations, or suspicious lesions Mental Status: Alert and oriented x3. Normal mood and affect Assessment/Plan 1. Atypical chest pain (R07.89: Other chest pain) Nonexertional felt most likely secondary to GERD, however will procure repeat EKG cardiac echo 48-hour Holter and cardiac referral to ensure noncardiac etiology. Please see ED visit 01/22/2024 [facility] for panel blood work, chest x-ray EKG. Keep food diary to see if certain sauces and/or foods aggravate, he voices understanding and states he will do so Ordered: ECG 12 Lead Adult Echo Transthoracic [place] [facility] [place] Amb[place] Referral Holter Monitor 48 hr Lipid Panel 2. Well adult exam (Z00.00: Encounter for general adult medical examination without abnormal findings) Please see blood work done ED [facility] 3. Elevated ALT measurement (R74.01: Elevation of levels of liver transaminase levels) Mild elevation, repeat liver function studies and ferritin. CBC unremarkable please see ER report [facility] last week. Ordered: Ferritin Hepatic Function (more content not included)... Normal [facility] Comment on above: Result Comment: Elec tronically Signed By: Bailey LIU DO, FAAFP\Date and Time Signed: 01/28/24 11:13 EDT Outside [facility] Correspo ndenceon 01-28-2024 Outside [facility] Correspondence [id number] Normal [facility] Patient Educationon 01-28-20 Patient Education Pulmonary Medicine Nonspecific Chest Pain, Adult Chest pain is an uncomfortable, tight, or painful feeling in the chest. The pain can feel like a crushing, aching, or squeezing pressure. A person can feel a burning or tingling sensation. Chest pain can also be felt in your back, neck, jaw, shoulder, or arm. This pain can be worse when you move, sneeze, or take a deep breath. Chest pain can be caused by a condition that is life-threatening. This must be treated right away. It can also be caused by something that is not life-threatening. If you have chest pain, it can be hard to know the difference, so it is important to get help right away to make sure that you do not have a serious condition. Some life-threatening causes of chest pain include: ? Heart attack. ? A tear in the body's main blood vessel (aortic dissection). ? Inflammation around your heart (pericarditis). ? A problem in the lungs, such as a blood clot (pulmonary embolism) or a collapsed lung (pneumothorax). Some non life-threatening causes of chest pain include: ? Heartburn. ? Anxiety or stress. ? Damage to the bones, muscles, and cartilage that make up your chest wall. ? Pneumonia or bronchitis. ? Shingles infection (varicella-zoster virus). Your chest pain may come and go. It may also be constant. Your health care provider will do tests and other studies to find the cause of your pain. Treatment will depend on the cause of your chest pain. Follow these instructions at home: Medicines ? Take rgwc-pql-jzmmtjx and prescription medicines only as told by your health care provider. ? If you were prescribed an antibiotic medicine, take it as told by your health care provider. Do not stop taking the antibiotic even if you start to feel better. Activity ? Avoid any activities that cause chest pain. ? Do not lift anything that is heavier than 10 lb (4.5 kg), or the limit that you are told, until your health care provider says that it is safe. ? Rest as directed by your health care provider. ? Return to your normal activities only as told by your health care provider. Ask your health care provider what activities are safe for you. Lifestyle ? Do not use any products that contain nicotine or tobacco, such as cigarettes, e-cigarettes, and chewing tobacco. If you need help quitting, ask your health care provider. ? Do not drink alcohol. ? Make healthy lifestyle changes as recommended. These may include: ? Getting regular exercise. Ask your health care provider to suggest some exercises that are safe for you. ? Eating a heart-healthy diet. This includes plenty of fresh fruits and vegetables, whole grains, low-fat (lean) protein, and low-fat dairy products. A dietitian can help you find healthy eating options. ? Maintaining a healthy weight. ? Managing any other health conditions you may have, such as high blood pressure (hypertension) or diabetes. ? Reducing stress, such as with yoga or relaxation techniques. General instructions ? Pay attention to any changes in your symptoms. ? It is up to you to get the results of any tests that were done. Ask your health care provider, or the department that is doing the tests, when your results will be ready. ? Keep all follow-up visits as told by your health care provider. This is important. ? You may be asked to go for further testing if your chest pain does not go away. Contact a health care provider if: ? Your chest pain does not go away. ? You feel depressed. ? You have a fever. ? You notice changes in your symptoms or develop new symptoms. Get help right away if: ? Your chest pain gets worse. ? You have a cough that gets worse, or you cough up blood. ? You have severe pain in your abdomen. ? You faint. ? You have sudden, unexplained chest discomfort. ? You have sudden, unexplained discomfort in your arms, back, neck, or jaw. ? You have shortness of breath at any time. ? You suddenly start to sweat, or your skin gets clammy. ? You feel nausea or you vomit. ? You suddenly feel lightheaded or dizzy. ? You have severe weakness, or unexplained weakness or fatigue. ? Your heart begins to beat quickly, or it feels like it is skipping beats. These symptoms may represent a serious problem that is an emergency. Do not wait to see if the symptoms will go away. Get medical help right away. Call your local emergency services (911 in the [place] Do not drive yourself to the hospital. Summary ? Chest pain can be caused by a condition that is serious and requires urgent treatment. It may also be caused by something that is not life-threatening. ? Your health care provider may do lab tests and other studies to find the cause of your pain. ? Follow your health care provider's instructions on taking medicines, making lifestyle changes, and getting emergency treatment if symptoms become worse. ? Keep all follow-up visits as told by your (more content not included)... Normal [facility] ED Note-Physicianon 11-16-19 ED Note-Physician Basic Information Time Seen: Demetra Landrum PA-C 10/30/2023 09:20 Chief Complaint Pt states that he thinks he has pink eye in right eye. Starting this morning History of Present Illness 33-year-old male presents with a red eye that started this morning, but seems to be getting better. He is concerned about pinkeye. He does not wear contact lenses. Denies discharge or vision changes. Denies itching. Denies eye pain. Review of Systems Review of systems negative unless otherwise stated in HPI Physical Exam Vitals & Measurements T: 36.4 ?C(Oral) HR: 69(Peripheral) RR: 17 BP: 119/79 SpO2: 97% HT: 170.18 cm WT: 87 kg BMI: 30.04 GENERAL: ALERT, NO ACUTE DISTRESS SKIN: WARM, DRY, INTACT; NO CYANOSIS, NO RASH HEAD: NORMOCEPHALIC, ATRAUMATIC ENT: EYE: PERRL, EOMI, minimally injected right CONJUNCTIVA, NO DISCHARGE, NO NYSTAGMUS NOSE: NARES PATENT MOUTH: ORAL MUCOSA MOIST THROAT: NO STRIDOR NECK: SUPPLE, TRACHEA MIDLINE, FROM RESPIRATORY: NON-LABORED RESPIRATIONS, SYMMETRICAL EXPANSION,NO RETRACTIONS EXTREMITIES: FROM X 4 NEUROLOGICAL: A&OX3 PSYCHIATRIC: COOPERATIVE, APPROPRIATE MOOD AND AFFECT Medical Decision Making I am not convinced is bacterial conjunctivitis at this time as there is no discharge, but he will be prescribed Garamycin and is instructed to only use this if he develops green or yellow discharge from his eye. As of right now it does seem like a little irritation. He has a follow-up family doctor dredge hand. Afebrile, not tachycardic, not tachypneic, nontoxic-appearing, tolerating p.o. and ambulating at baseline and hemodynamically stable to be discharged home. Educated side effect of medications. Answered all questions. Patient in agreement with treatment. Assessment/Plan 1. Redness of eye (H57.89: Other specified disorders of eye and adnexa) Ordered: gentamicin ophthalmic, 2 drop(s), OPTH, QID for 7 day(s), 5 mL, Refill(s) 0, [facility], 170.2, cm, 10/30/23 9:25:00 EST, Height/Length Dosing, 87, kg, 10/30/23 9:25:00 EST, Weight Dosing Disposition Plan Patient Discharge Condition Stable Discharge Disposition Home Discharge Prescription List Prescriptions Garamycin 0.3% Soln-Opth, 2 drop(s), OPTH, QID Follow-up With When Contact Information NOE JOAQUIN FAAFP, Bailey Ge, JOANA, PED In 3 days 11/02/2023 EST [address], [place] [address]- Additional Instructions: Shayan Person DO Within 2 to 4 days, only if needed [facility] [address], [address] [place] [id number]- Additional Instructions: only use antibiotic eye drop if you develop green or yellow discharge from your eye if red eye and itching, use OTC alaway eye drops Patient Education Bacterial Conjunctivitis, Adult, Fdym-ux-Qfst Attestation I performed a substantive part of the MDM during the patient?s E/M visit. I personally made or approved the documented management plan and acknowledge its risk of complications. (Independent Interpretation) My (EKG/X-Ray/US/CT) interpretation as above. (Discussion) Management/test interpretation discussed with APC. Problem List/Past Medical History Ongoing Functional abdominal pain syndrome Strain of muscle of right groin region Well adult exam Historical Groin strain Medications Inpatient No active inpatient medications Home Garamycin 0.3% Soln-Opth, 2 drop(s), OPTH, QID Allergies No Known Medication Allergies Social History Alcohol - Denies Alcohol Use, 11/14/2021 Substance Abuse - Denies Substance Abuse, 11/14/2021 Tobacco - Denies Tobacco Use, 11/14/2021 Never (less than 100 in lifetime) Tobacco Use:., 04/11/2021 Family History Family history is negative Lab Results No qualifying data available. Diagnostic Results No qualifying data available. [facility] Comment on above: Result Comment: Elec tronically Signed By: Demetra Landrum PA-C\.br\Date and Time Signed: 10/30/23 09:46 EST\.br\Electronically Co-Signed By: Chet Corrales MD\.br\Date and Time Co-Signed: 11/16/23 19:25 EDT Consent for Treatmenton Consent for Treatment [id number] [facility] Discharge Instructionson Discharge Instructions [id number] [facility] ED Clinical Summaryon 2023 ED Clinical Summary (Inserted Image. Shaunna ble to display) [place] [id number] ED Clinical Summary Person Information Name: ATUL RUST [facility] Age: 33 Years : 1990 Sex: Male Language: South African PCP: Bailey LIU DO, FAAFP Marital Status: Phone: [phone] Visit Id: Visit Reason: Eye drainage; POSSILBE PINK EYE Speciality: Acuity: 5 Enc Type: Emergency Med Service: Emergency Arrival: 10/30/2023 09:17:26 Discharge: 10/30/2023 09:40:00 LOS: 000 00:23 Checkin: 10/30/2023 09:17:26 Checkout: 10/30/2023 09:40:00 Dispo Type: Home (Routine DC) EVENTS: Event Name Event Status Request Date/Time Start Date/Time Complete Date/Time Arrive Complete 10/30/2023 09:17:26 10/30/2023 09:17:26 10/30/2023 09:17:26 Document Home Meds Request 10/30/2023 09:17:26 Triage Complete 10/30/2023 09:17:26 10/30/2023 09:25:55 10/30/2023 09:25:55 Dr Exam Complete 10/30/2023 09:20:32 10/30/2023 09:20:32 10/30/2023 09:20:32 Registration Complete 10/30/2023 09:20:32 10/30/2023 09:27:12 10/30/2023 09:55:04 Bed Assign Complete 10/30/2023 09:27:12 10/30/2023 09:27:12 10/30/2023 09:27:12 RN Exam Complete 10/30/2023 09:27:12 10/30/2023 09:29:34 10/30/2023 09:29:34 Discharge Complete 10/30/2023 09:36:15 10/30/2023 10:00:04 10/30/2023 10:00:04 Reg Complete Request 10/30/2023 09:55:04 Reg Bed Request Complete 10/30/2023 09:55:04 10/30/2023 09:55:04 10/30/2023 09:55:04 Transfer Complete 10/30/2023 10:00:04 10/30/2023 10:00:04 10/30/2023 10:00:04 ADDRESS: [address] [id number] PHYS DOC NOTES: MEDICAL INFORMATION: Prescriptions Given: New Medications [facility] 1985, [address] [place], [place] [phone], [phone] gentamicin ophthalmic (Garamycin 0.3% Soln-Opth) 2 Drops Ophthalmic 4 times a day for 7 Days. Refills: 0. PATIENT EDUCATION INFORMATION: Instructions: Bacterial Conjunctivitis, Adult, Oxpg-zc-Rodv Follow up: With: Address: When: Shayan Person DO [facility] [address], [address] [place] [address] Within 2 to 4 days, only if needed Comments: only use antibiotic eye drop if you develop green or yellow discharge from your eye if red eye and itching, use OTC alaway eye drops With: Address: When: NOE DO FAAFP, Bailey Ge, JOANA, PED [address], [place] [address] In 3 days 11/02/2023 DIAGNOSIS: 1:Redness of eye Normal [facility] ED Patient Education Noteon 10-30-2023 ED Patient Education Note Infectious Disease Bacterial Conjunctivitis, Adult Bacterial conjunctivitis is an infection of your conjunctiva. This is the clear membrane that covers the white part of your eye and the inner part of your eyelid. This infection can make your eye: ? Red or pink. ? Itchy or irritated. This condition spreads easily from person to person (is contagious) and from one eye to the other eye. What are the causes? This condition is caused by germs (bacteria). You may get the infection if you come into close contact with: ? A person who has the infection. ? Items that have germs on them (are contaminated), such as face towels, contact lens solution, or eye makeup. What increases the risk? You are more likely to get this condition if: ? You have contact with people who have the infection. ? You wear contact lenses. ? You have a sinus infection. ? You have had a recent eye injury or surgery. ? You have a weak body defense system (immune system). ? You have dry eyes. What are the signs or symptoms? ? Thick, yellowish discharge from the eye. ? Tearing or watery eyes. ? Itchy eyes. ? Burning feeling in your eyes. ? Eye redness. ? Swollen eyelids. ? Blurred vision. How is this treated? ? Antibiotic eye drops or ointment. ? Antibiotic medicine taken by mouth. This is used for infections that do not get better with drops or ointment or that last more than 10 days. ? Cool, wet cloths placed on the eyes. ? Artificial tears used 2?6 times a day. Follow these instructions at home: Medicines ? Take or apply your antibiotic medicine as told by your doctor. Do not stop using it even if you start to feel better. ? Take or apply ybfy-usw-brdkioq and prescription medicines only as told by your doctor. ? Do not touch your eyelid with the eye-drop bottle or the ointment tube. Managing discomfort ? Wipe any fluid from your eye with a warm, wet washcloth or a cotton ball. ? Place a clean, cool, wet cloth on your eye. Do this for 10?20 minutes, 3?4 times a day. General instructions ? Do not wear contacts until the infection is gone. Wear glasses until your doctor says it is okay to wear contacts again. ? Do not wear eye makeup until the infection is gone. Throw away old eye makeup. ? Change or wash your pillowcase every day. ? Do not share towels or washcloths. ? Wash your hands often with soap and water for at least 20 seconds and especially before touching your face or eyes. Use paper towels to dry your hands. ? Do not touch or rub your eyes. ? Do not drive or use heavy machinery if your vision is blurred. Contact a doctor if: ? You have a fever. ? You do not get better after 10 days. Get help right away if: ? You have a fever and your symptoms get worse all of a sudden. ? You have very bad pain when you move your eye. ? Your face: ? Hurts. ? Is red. ? Is swollen. ? You have sudden loss of vision. Summary ? Bacterial conjunctivitis is an infection of your conjunctiva. ? This infection spreads easily from person to person. ? Wash your hands often with soap and water for at least 20 seconds and especially before touching your face or eyes. Use paper towels to dry your hands. ? Take or apply your antibiotic medicine as told by your doctor. ? Contact a doctor if you have a fever or you do not get better after 10 days. This information is not intended to replace advice given to you by your health care provider. Make sure you discuss any questions you have with your health care provider. Document Revised: 11/22/2021 Document Reviewed: 11/22/2021 Elsevier Patient Education ? 2022 [employer] Normal [facility] ED Patient Summaryon 024 ED Patient Summary (Inserted Image. Shaunna ble to display) [address] [place] [address] Patient Discharge Instructions Person Information Name: ATUL RUST Age: 33 Years Arrival Date: 10/30/2023 09:17:26 Discharge Diagnosis: 1:Redness of eye Primary Care Physician: Bailey LIU DO, FAAFP Provider Information Primary Provider: [employer] Developer:None The exam and treatment you received in the Emergency Department were for an urgent problem and are not intended as complete care. It is important that you follow up with a doctor, nurse practitioner, or physician?s rehab assistant for ongoing care. If your symptoms become worse or you do not improve as expected and you are unable to reach your usual health care provider, you should return to the Emergency Department. We are available 24 hours a day. ATUL RUST has been given the following list of patient education materials, prescriptions and follow-up instructions: Follow-up Instructions: With: Address: When: Shayan Person DO [facility] [address], [address] [place] [address] Within 2 to 4 days, only if needed Comments: only use antibiotic eye drop if you develop green or yellow discharge from your eye if red eye and itching, use OTC alaway eye drops With: Address: When: Baliey LIU DO, FAAFP, FAM, PED [address], [place] [address] In 3 days 11/02/2023 In the event that this physician does not participate in your insurance network, please consult with your insurance company to find a nearby participating provider. Patient Education Materials: Bacterial Conjunctivitis, Adult, Xfej-gv-Ikrk A MESSAGE TO ALL PATIENTS REGARDING OPIOIDS PRESCRIPTION OPIOIDS: WHAT YOU NEED TO KNOW Prescription opioids can be used to help relieve srswtmfw-sy-ngeabo pain and are often prescribed following a surgery or injury, or for certain health conditions. These medications can be an important part of the treatment but also come with serious risks. It is important to work with your healthcare provider to make sure you are getting the safest, most effective care. WHAT ARE THE RISKS AND SIDE EFFECTS OF OPIOID USE? Prescription opioids carry serious risks of addiction and overdose, especially with prolonged use. An opioid overdose, often marked by slowed breathing, can cause sudden . The use of prescription opioids can have a number of side effects as well, even when taken as directed: ? Tolerance?meaning you might need to take more of the medication for the same pain relief ? Physical dependence?meaning you have symptoms of withdrawal when a medication is stopped ? Increased sensitivity to pain ? Constipation ? Nausea, vomiting, and dry mouth ? Sleepiness and dizziness ? Confusion ? Depression ? Low levels of testosterone that can result in lower sex drive, energy, and strength ? Itching and sweating RISKS ARE GREATER WITH: ? History of drug misuse, substance use disorder, or overdose ? Mental health conditions (such as depression or anxiety) ? Sleep apnea ? Older age (65 years and older) ? Avoid alcohol while taking prescription opioids. Also, unless specifically advised by your health care provider, medications to avoid include: ? Benzodiazepines (such as Xanax or Valium) ? Muscle relaxants (such as Soma or Flexeril) ? Hypnotics (such as Ambien or Lunesta) ? Other prescription opioids KNOW YOUR OPTIONS Talk to your health care provider about ways to manage your pain that don?t involve prescription opioids. Some of these options may actually work better and have fewer risks and side effects. Options may include: ? Pain relievers such as acetaminophen, ibuprofen, and naproxen ? Some medication that are also used for depression or seizures ? Physical therapy and exercise ? Cognitive behavioral therapy, a psychological, goal-directed approach, in which patients learn how to modify physical, behavioral, and emotional triggers of pain and stress. IF YOU ARE PRESCRIBED OPIOIDS FOR PAIN: ? Never take opioids in greater amounts or more often than prescribed. ? Follow up with your primary health care provider. o Work together to create a plan on how to manage your pain. o Talk about ways to help manage your pain that don?t involve prescription opioids. o Talk about any and all concerns and side effects. ? Help prevent misuse and abuse o Never sell or share prescription opioids. o Never use another person?s prescription opioids. ? Store prescription opioids in a secure place and out of reach of others (this may include visitors, children, friends, and family). ? Safely dispose of unused prescription opioids: Find your community drug take-back program or your pharmacy mail-back program, or flush them down the toilet, following guidance from the Food and Drug Administration (www.fda.gov/Drugs/Resourc esForYou (more content not included)... Normal [facility] Vital Signs Date Time Vital Sign Value Performing Clinician Mark burroughs 02-20-2024 08:54-0400 Blood Pressure Location Rikki Lynknus [facility] 02-20-2024 08:54-0400 Diastolic blood pressure 72 mm[Hg] Rikki Kirnus [facility] 02-20-2024 08:54-0400 Heart rate 64 /min Rikki Lynknus [facility] 02-20-2024 08:54-0400 Respiratory rate 16 /min Rikki Lynknus [facility] 02-20-2024 08:54-0400 SaO2% (BldA) [Mass fraction] 98 % Rikki Lynknus [facility] 02-20-2024 08:54-0400 Systolic blood pressure 122 mm[Hg] Rikki Lynknus [facility] 01-28-2024 10:21-0400 Blood Pressure Location Bailey SAXENALE [facility] 01-28-2024 10:21-0400 Body temperature 97.52 [degF] Bailey KAPLE [facility] 01-28-2024 10:21-0400 Diastolic blood pressure 72 mm[Hg] Bailey KAPLE [facility] 01-28-2024 10:21-0400 Heart rate 77 /min Bailey KAPLE [facility] 01-28-2024 10:21-0400 SaO2% (BldA) [Mass fraction] 96 % Bailey KAPLE [facility] 01-28-2024 10:21-0400 Systolic blood pressure 138 mm[Hg] Bailey KAPLE [facility] 10-30-2023 09:21-0500 Body temperature 97.52 [degF] Chet Corrales [facility] 10-30-2023 09:21-0500 Diastolic blood pressure 79 mm[Hg] Chet Corrales [facility] 10-30-2023 09:21-0500 Heart rate 69 /min Chet Corrales [facility] 10-30-2023 09:21-0500 Respiratory rate 17 /min Chet Corrales [facility] 10-30-2023 09:21-0500 SaO2% (BldA) [Mass fraction] 97 % Chet Corrales [facility] 10-30-2023 09:21-0500 Systolic blood pressure 119 mm[Hg] Chet Corrales [facility] 11-14-2021 16:09-0400 Body temperature 97.16 [degF] Jame Davidson [facility] 11-14-2021 16:09-0400 Diastolic blood pressure 77 mm[Hg] Jame Davidson [facility] 11-14-2021 16:09-0400 Heart rate 70 /min Jame Davidson [facility] 11-14-2021 16:09-0400 Respiratory rate 17 /min Jame Davidson [facility] 11-14-2021 16:09-0400 SaO2% (BldA) [Mass fraction] 98 % Jame Davidson [facility] 11-14-2021 16:09-0400 Systolic blood pressure 128 mm[Hg] Jame Davidson [facility] Encounters Encounter Date Encounter Type Care Provider Facility Start: 05-12-2024 ambulatory Bailey LIU Facility: [facility] Start: 02-20-2024 End: 02-20-2024 ambulatory Rikki Lomeli Adileneyumiko [place] [place]: 02-20-2024 End: 02-20-2024 Patient encounter procedure Rikki Lomeli Adileneyumiko [facility] Start: 01-29-2024 End: 01-29-2024 ambulatory Bailey Luma HEMANTHMIO [place] Start: 01-29-2024 End: 01-29-2024 Patient encounter procedure Bailey Luma NOE [facility] Start: 01-28-2024 End: 01-28-2024 ambulatory Bailey Luma HEMANTHMIO Facility:[facility] Start: 01-28-2024 End: 01-28-2024 Patient encounter procedure Bailey Luma NOE [facility] Start: 01-28-2024 End: 01-28-2024 Well adult monitoring check done Bailey LIU [facility] Start: 10-30-2023 End: 10-30-2023 Emergency department patient visit Chet Corrales [facility] Start: 06-26-2022 End: 06-26-2022 ambulatory MATEO ELAINE Facility: Start: 11-14-2021 End: 11-14-2021 Emergency department patient visit Jame Davidson [facility] Immunizations Immunization Date Immunization Notes Care Provider Georgette tong NEGATED: Highlighted row has not occurred!04-11-2021 SARS-CoV-2 (COVID-19) Ad26 vaccine, recombinant Jame Davidson [facility] NEGATED: Highlighted row has not occurred!08-25-2020 influenza virus vaccine, unspecified formulation Jame Davidson [facility] Payers Date Payer Category Payer Unknown [id number] 2023 Unknown 2019 Unknown [id number] 1991 Unknown [id number] [id number] 1991 Unknown [id number] 2.16.8 [id number] 1991 Unknown [id number] 2.16.8 [id number] 1991 Unknown [id number] 2.16.8 [id number] 1991 Unknown [id number] 2.16.8 [id number] 1991 Unknown [id number] 2.16.8 [id number] 1959 Unknown [id number] 1959 Unknown [id number] Social History Date Type Detail Facility Start: 04-11-2021 End: 02-20-2024 Tobacco smoking status Never smoked tobacco (finding) [facility] Sex Assigned At Male [facility] Tobacco smoking status Never [facility] Functional Status Date Assessment Result Facility 02-20-2024 Functional Status No [facility] 01-28-2024 Functional Status N/A [facility] 10-30-2023 Functional Status N/A [facility] Discharge instructions 01-28-2024 Note Date & Type Note Facility 01-28-2024 Hospital Discharg e instructions Patient Education 01/28/2024 10:55:31 Nonspecific Chest Pain, Adult Nonspecific Chest Pain, Adult Chest pain is an uncomfortable, tight, or painful feeling in the chest. The pain can feel like a crushing, aching, or squeezing pressure. A person can feel a burning or tingling sensation. Chest pain can also be felt in your back, neck, jaw, shoulder, or arm. This pain can be worse when you move, sneeze, or take a deep breath. Chest pain can be caused by a condition that is life-threatening. This must be treated right away. It can also be caused by something that is not life-threatening. If you have chest pain, it can be hard to know the difference, so it is important to get help right away to make sure that you do not have a serious condition. Some life-threatening causes of chest pain include: Heart attack. A tear in the body's main blood vessel (aortic dissection). Inflammation around your heart (pericarditis). A problem in the lungs, such as a blood clot (pulmonary embolism) or a collapsed lung (pneumothorax). Some non life-threatening causes of chest pain include: Heartburn. Anxiety or stress. Damage to the bones, muscles, and cartilage that make up your chest wall. Pneumonia or bronchitis. Shingles infection (varicella-zoster virus). Your chest pain may come and go. It may also be constant. Your health care provider will do tests and other studies to find the cause of your pain. Treatment will depend on the cause of your chest pain. Follow these instructions at home: Medicines Take fskd-jvi-kuqkbyv and prescription medicines only as told by your health care provider. If you were prescribed an antibiotic medicine, take it as told by your health care provider. Do not stop taking the antibiotic even if you start to feel better. Activity Avoid any activities that cause chest pain. Do not lift anything that is heavier than 10 lb (4.5 kg), or the limit that you are told, until your health care provider says that it is safe. Rest as directed by your health care provider. Return to your normal activities only as told by your health care provider. Ask your health care provider what activities are safe for you. Lifestyle Do not use any products that contain nicotine or tobacco, such as cigarettes, e-cigarettes, and chewing tobacco. If you need help quitting, ask your health care provider. Do not drink alcohol. Make healthy lifestyle changes as recommended. These may include: ?Getting regular exercise. Ask your health care provider to suggest some exercises that are safe for you. ?Eating a heart-healthy diet. This includes plenty of fresh fruits and vegetables, whole grains, low-fat (lean) protein, and low-fat dairy products. A dietitian can help you find healthy eating options. ?Maintaining a healthy weight. ?Managing any other health conditions you may have, such as high blood pressure (hypertension) or diabetes. ?Reducing stress, such as with yoga or relaxation techniques. General instructions Pay attention to any changes in your symptoms. It is up to you to get the results of any tests that were done. Ask your health care provider, or the department that is doing the tests, when your results will be ready. Keep all follow-up visits as told by your health care provider. This is important. You may be asked to go for further testing if your chest pain does not go away. Contact a health care provider if: Your chest pain does not go away. You feel depressed. You have a fever. You notice changes in your symptoms or develop new symptoms. Get help right away if: Your chest pain gets worse. You have a cough that gets worse, or you cough up blood. You have severe pain in your abdomen. You faint. You have sudden, unexplained chest discomfort. You have sudden, unexplained discomfort in your arms, back, neck, or jaw. You have shortness of breath at any time. You suddenly start to sweat, or your skin gets clammy. You feel nausea or you vomit. You suddenly feel lightheaded or dizzy. You have severe weakness, or unexplained weakness or fatigue. Your heart begins to beat quickly, or it feels like it is skipping beats. These symptoms may represent a serious problem that is an emergency. Do not wait to see if the symptoms will go away. Get medical help right away. Call your local emergency services (911 in the [place] Do not drive yourself to the hospital. Summary Chest pain can be caused by a condition that is serious and requires urgent treatment. It may also be caused by something that is not life-threatening. Your health care provider may do lab tests and other studies to find the cause of your pain. Follow your health care provider's instructions on taking medicines, making lifestyle changes, and getting emergency treatment if symptoms become worse. Keep all follow-up visits as told by your health care provider. This includes visits for any further testing if your chest pain does not go away. This information is not intended to replace advice given to you by your health care provider. Make sure you discuss any questions you have with your health care provider. Document Revised: 10/26/2021 Document Reviewed: 10/26/2021 [employer] Patient Education 2022 [employer]. Follow Up Care 01/22/2024 13:11:24 With:NOE JOAQUIN FAAFP, JOANA Saucedo, PED Address: [facility] Pramod Benson [facility] [place] [address]- When:Within 3 Month(s) [facility] Hospital Discharge instructions 10-30-2023 Note Date & Type Note Facility 10-30-2023 Hospital Discharg e instructions Patient Education 10/30/2023 09:34:50 Bacterial Conjunctivitis, Adult, Vksg-io-Chzh Bacterial Conjunctivitis, Adult Bacterial conjunctivitis is an infection of your conjunctiva. This is the clear membrane that covers the white part of your eye and the inner part of your eyelid. This infection can make your eye: Red or pink. Itchy or irritated. This condition spreads easily from person to person (is contagious) and from one eye to the other eye. What are the causes? This condition is caused by germs (bacteria). You may get the infection if you come into close contact with: A person who has the infection. Items that have germs on them (are contaminated), such as face towels, contact lens solution, or eye makeup. What increases the risk? You are more likely to get this condition if: You have contact with people who have the infection. You wear contact lenses. You have a sinus infection. You have had a recent eye injury or surgery. You have a weak body defense system (immune system). You have dry eyes. What are the signs or symptoms? Thick, yellowish discharge from the eye. Tearing or watery eyes. Itchy eyes. Burning feeling in your eyes. Eye redness. Swollen eyelids. Blurred vision. How is this treated? Antibiotic eye drops or ointment. Antibiotic medicine taken by mouth. This is used for infections that do not get better with drops or ointment or that last more than 10 days. Cool, wet cloths placed on the eyes. Artificial tears used 2 6 times a day. Follow these instructions at home: Medicines Take or apply your antibiotic medicine as told by your doctor. Do not stop using it even if you start to feel better. Take or apply xzfy-eae-trxatgv and prescription medicines only as told by your doctor. Do not touch your eyelid with the eye-drop bottle or the ointment tube. Managing discomfort Wipe any fluid from your eye with a warm, wet washcloth or a cotton ball. Place a clean, cool, wet cloth on your eye. Do this for 10 20 minutes, 3 4 times a day. General instructions Do not wear contacts until the infection is gone. Wear glasses until your doctor says it is okay to wear contacts again. Do not wear eye makeup until the infection is gone. Throw away old eye makeup. Change or wash your pillowcase every day. Do not share towels or washcloths. Wash your hands often with soap and water for at least 20 seconds and especially before touching your face or eyes. Use paper towels to dry your hands. Do not touch or rub your eyes. Do not drive or use heavy machinery if your vision is blurred. Contact a doctor if: You have a fever. You do not get better after 10 days. Get help right away if: You have a fever and your symptoms get worse all of a sudden. You have very bad pain when you move your eye. Your face: ?Hurts. ?Is red. ?Is swollen. You have sudden loss of vision. Summary Bacterial conjunctivitis is an infection of your conjunctiva. This infection spreads easily from person to person. Wash your hands often with soap and water for at least 20 seconds and especially before touching your face or eyes. Use paper towels to dry your hands. Take or apply your antibiotic medicine as told by your doctor. Contact a doctor if you have a fever or you do not get better after 10 days. This information is not intended to replace advice given to you by your health care provider. Make sure you discuss any questions you have with your health care provider. Document Revised: 11/22/2021 Document Reviewed: 11/22/2021 [employer] Patient Education 2022 [employer]. Follow Up Care 10/30/2023 09:19:46 With:Shayan Person DO Address: [facility] Pramod Benson, [address] [address]- When:2 to 4 days only if needed Comments:only use antibiotic eye drop if you develop green or yellow discharge from your eyeif red eye and itching, use OTC alaway eye drops With:NOE JOAQUIN FAAFP, Bailey Ge, JOANA, PED Address: [place] [address]- When:11/02/2023 [facility] Hospital Discharge instructions 11-14-2021 Note Date & Type Note Facility 11-14-2021 Hospital Discharg e instructions Patient Education 11/14/2021 16:52:52 Sinusitis, Adult Sinusitis, Adult Sinusitis is inflammation of your sinuses. Sinuses are hollow spaces in the bones around your face. Your sinuses are located: Around your eyes. In the middle of your forehead. Behind your nose. In your cheekbones. Mucus normally drains out of your sinuses. When your nasal tissues become inflamed or swollen, mucus can become trapped or blocked. This allows bacteria, viruses, and fungi to grow, which leads to infection. Most infections of the sinuses are caused by a virus. Sinusitis can develop quickly. It can last for up to 4 weeks (acute) or for more than 12 weeks (chronic). Sinusitis often develops after a cold. What are the causes? This condition is caused by anything that creates swelling in the sinuses or stops mucus from draining. This includes: Allergies. Asthma. Infection from bacteria or viruses. Deformities or blockages in your nose or sinuses. Abnormal growths in the nose (nasal polyps). Pollutants, such as chemicals or irritants in the air. Infection from fungi (rare). What increases the risk? You are more likely to develop this condition if you: Have a weak body defense system (immune system). Do a lot of swimming or diving. Overuse nasal sprays. Smoke. What are the signs or symptoms? The main symptoms of this condition are pain and a feeling of pressure around the affected sinuses. Other symptoms include: Stuffy nose or congestion. Thick drainage from your nose. Swelling and warmth over the affected sinuses. Headache. Upper toothache. A cough that may get worse at night. Extra mucus that collects in the throat or the back of the nose (postnasal drip). Decreased sense of smell and taste. Fatigue. A fever. Sore throat. Bad breath. How is this diagnosed? This condition is diagnosed based on: Your symptoms. Your medical history. A physical exam. Tests to find out if your condition is acute or chronic. This may include: ?Checking your nose for nasal polyps. ?Viewing your sinuses using a device that has a light (endoscope). ?Testing for allergies or bacteria. ?Imaging tests, such as an MRI or CT scan. In rare cases, a bone biopsy may be done to rule out more serious types of fungal sinus disease. How is this treated? Treatment for sinusitis depends on the cause and whether your condition is chronic or acute. If caused by a virus, your symptoms should go away on their own within 10 days. You may be given medicines to relieve symptoms. They include: ?Medicines that shrink swollen nasal passages (topical intranasal decongestants). ?Medicines that treat allergies (antihistamines). ?A spray that eases inflammation of the nostrils (topical intranasal corticosteroids). ?Rinses that help get rid of thick mucus in your nose (nasal saline washes). If caused by bacteria, your health care provider may recommend waiting to see if your symptoms improve. Most bacterial infections will get better without antibiotic medicine. You may be given antibiotics if you have: ?A severe infection. ?A weak immune system. If caused by narrow nasal passages or nasal polyps, you may need to have surgery. Follow these instructions at home: Medicines Take, use, or apply xjup-gez-civvcfd and prescription medicines only as told by your health care provider. These may include nasal sprays. If you were prescribed an antibiotic medicine, take it as told by your health care provider. Do not stop taking the antibiotic even if you start to feel better. Hydrate and humidify Drink enough fluid to keep your urine pale yellow. Staying hydrated will help to thin your mucus. Use a cool mist humidifier to keep the humidity level in your home above 50%. Inhale steam for 10 15 minutes, 3 4 times a day, or as told by your health care provider. You can do this in the bathroom while a hot shower is running. Limit your exposure to cool or dry air. Rest Rest as much as possible. Sleep with your head raised (elevated). Make sure you get enough sleep each night. General instructions Apply a warm, moist washcloth to your face 3 4 times a day or as told by your health care provider. This will help with discomfort. Wash your hands often with soap and water to reduce your exposure to germs. If soap and water are not available, use hand senior user experience architect. Do not smoke. Avoid being around people who are smoking (secondhand smoke). Keep all follow-up visits as told by your health care provider. This is important. Contact a health care provider if: You have a fever. Your symptoms get worse. Your symptoms do not improve within 10 days. Get help right away if: You have a severe headache. You have persistent vomiting. You have severe pain or swelling around your face or eyes. You have vision problems. You develop confusion. Your neck is stiff. You have trouble breathing. Summary Sinusitis is soreness and inflammation of your sinuses. Sinuses are hollow spaces in the bones around your face. This condition is caused by nasal tissues that become inflamed or swollen. The swelling traps or blocks the flow of mucus. This allows bacteria, viruses, and fungi to grow, which leads to infection. If you were prescribed an antibiotic medicine, take it as told by your health care provider. Do not stop taking the antibiotic even if you start to feel better. Keep all follow-up visits as told by your health care provider. This is important. This information is not intended to replace advice given to you by your health care provider. Make sure you discuss any questions you have with your health care provider. Document Released: 08/12/2006 Document Revised: 01/12/2019 Document Reviewed: 01/12/2019 [employer] Patient Education 2020 [employer]. Follow Up Care 11/14/2021 16:03:27 With:Bailey LIU Address: [address] [place] [address] [place] [address] Business (1) When:11/17/2021 16:40:29 [facility] Evaluation + Plan note 04-11-2021 Laboratory Note Date & Type Note Facility 04-11-2021 Evaluation + Plan note Future Scheduled [id number], HIMA 04/11/21 [facility] Evaluation + Plan note LaboratoryRadiology Note Date & Type Note Facility Evaluation + Plan note Future Appointments Appointment Date:05/12/2024 10:40:00 AM Scheduled Provider:Bailey LIU DO, FAAFP Location:[facility] Appointment Type:FM Open Future Scheduled TestsFerritin 6//24Hepatic Function Panel 01/28/24Lipid Panel 01/28/24Echo Transthoracic Complete 01/28/24 [facility] Evaluation + Plan note Radiology Note Date & Type Note Facility Evaluation + Plan note Future Appointments Appointment Date:05/12/2024 10:40:00 AM Scheduled Provider:Bailey LIU DO, FAAFP Location:[facility] Appointment Type:FM Open Future Scheduled TestsEcho Transthoracic Complete 01/28/24 [facility] Hospital course Narrative Note Date & Type Note Facility Hospital course Narrative No data available for this section [facility] Hospital Discharge instructions Note Date & Type Note Facility Hospital Discharge instructions No data available for this section [facility] Progress note Note Date & Type Note Facility Progress note No data available for this section [facility] Summary Purpose Family History No Family History Records Found No data available for this section No data available for this section No data available for this section No Family History Records FoundNo Family History Records FoundNo Family History Records Found No data available for this section No Family History Records Found Advance Directives No Advanced Directives Records FoundNo Advanced Directives Records FoundNo Advanced Directives Records FoundNo Advanced Directives Records FoundNo Advanced Directives Records Found Additional Source Comments (unrecognized sect ion and content) No Status Records FoundNo Status Records FoundNo Status Records FoundNo Status Records FoundNo Status Records Found INFORMATION SOURCE (unrecogn ized section and content) DATE CREATED AUTHOR 06/28/2022 [facility] DATE CREATED AUTHOR AUTHOR'S ORGANIZ ATION 01/30/2024 [facility] DATE CREATED AUTHOR AUTHOR'S ORGANIZ ATION 02/03/2024 [facility] DATE CREATED AUTHOR AUTHOR'S ORGANIZ ATION 02/21/2024 [facility] Patient Care team informatio n (unrecognized section and content) Personnel Name: Bailey LIU DO, FAAFP Address: Address: [address] [place] [address] Personnel Name: Bailey LIU DO, FAAFP Address: Address: [address] [place] [address] Personnel Name: Bailey LIU DO, FAAFP Address: Address: [facility] [address] Personnel Name: NOE JOAQUIN Bailey BUTT Address: Address: [address] FOR RECORDS PERTAINING TO PATIENTS WHO ARE OR HAVE BEEN ENROLLED IN A CHEMICAL DEPENDENCY/SUBSTANCEABUSE PROGRAM, SOME INFORMATION MAY BE OMITTED. This clinical summary was aggregated from multiple sources. Caution should be exercised in using it in the provision of clinical care. This summary normalizes information from multiple sources, and as a consequence, information in this document may materially change the coding, format and clinical context of patient data. In addition, data may be omitted in some cases. CLINICAL DECISIONS SHOULD BE BASED ON THE PRIMARY CLINICAL RECORDS. [facility]. provides no warranty or guarantee of the accuracy or completeness of information in this document.
== END 2024-04-04 05:32 | disposition home or self-care (01) ==
LOC: ER 05:33
PROVIDERS: Emergency Provider Internal Medicine; Family Provider Family Medicine
DX: H66.92 Otitis media, unspecified, left ear (principal)
CPT/HCPCS: 99283